=== PATIENT | female | born 1985 | race Caucasian/White ===

== ENCOUNTER 2017-12-22 14:14 | Emergency (ER) | payer OTHER ==
--- OUTSIDE RECORDS SUMMARY | 2017-12-22 14:17 | XMS REPORT | Clinical Summary ---
:1985 Author Organization [facility] Address [address] [place] [id number] Care Team Providers Name Role Phone Asked, No Pcp Primary Care Provider Unavailable Allergies No Known Allergies Current Medications Prescription Sig. Disp. Refills Start Date End Date Status meloxicam (MOBIC) 15 Take 1 tablet 30 tablet 2 06/01/2016 06/01/2017 mg tablet (15 mg total) by mouth daily. Active Problems Problem Noted Date Weight gain 06/01/2016 Family History Medical History Relation Name Comments Arthritis Father No Known Problems Mother No Known Problems Other siblings Relation Name Status Comments Father Alive Mother Alive Other siblings Alive Social History Tobacco Use Types Packs/Day Years Used Date Never Smoker Smokeless Tobacco: Never Used Alcohol Use Drinks/Week oz/Week Comments Yes Sex Assigned at Date Recorded Not on file Last Filed Vital Signs Not on file Plan of Treatment Health Maintenance Due Date Last Done Comments CERVICAL CANCER SCREENING 2005 INFLUENZA VACCINE 11/23/2017 Results Not on fileafter 12/21/2016 Insurance Payer Benefit Plan / Group Subscriber ID Type Phone Address [employer] OPEN [employer]ESS/NETWORK xxxxxxxxxxx HMO
[2017-12-22 15:04] LABS: Urine Blood NEGATIVE (NEG); Urine Glucose NEGATIVE (NEG); Urine Protein NEGATIVE (NEG); Urine pH 5.5 (5.0-7.0)
[2017-12-22 15:17] LABS: Absolute Monocytes 0.6 K/uL (0.1-1.3); Absolute Neutrophil 2.6 K/uL (1.8-8.0); Basophils % 0.5 % (0-1.3); Eosinophils % 1.6 % (0-4.4); Hematocrit 39.7 % (36.0-45.0); Lymphocytes % 23.6 % (15.3-44.8); MCH 30.7 pg (27.0-35.0); MCV 90.9 fL (80-100); MPV 9.7 fL (7.6-11.3); Monocytes % 13.4 % (3.3-12.3); RBC Red Blood Cell Count 4.37 M/uL (3.86-4.86)
[2017-12-22] MEDS ORDERED: NA CHLORIDE 0.9% 1,000 ML ONE (15:20)
[2017-12-22 15:46] LABS: ALT/SGPT 21 U/L (12-78); AST/SGOT 20 U/L (15-37); Albumin 3.5 g/dL (3.4-5.0); Alkaline Phosphatase 37 U/L (45-117); Amylase Level 45 U/L (25-115); BUN Blood Urea Nitrogen 7 mg/dL (7-18); Bicarbonate 27 mmol/L (21-32); Bilirubin Direct < 0.1 mg/dL (0-0.2); Bilirubin Total 0.2 mg/dL (0.2-1.0); Glucose Level 120 mg/dL (74-106); Lipase 135 U/L (73-393); Potassium 3.8 mmol/L (3.5-5.1); Protein, Total 7.1 g/dL (6.4-8.2); Sodium Level 141 mmol/L (136-145)
--- NOTE | 2017-12-22 16:26 | EDPHYS ---
Physician Documentation [facility] Name: Yari Martinez Age: 32 yrs Sex: Female : 1985 Arrival Date: 12/22/2017 Time: 14:17 Bed 23 Private MD: None, None ED Physician Juice Uribe HPI: 12/22 15:51 This 32 yrs old Female presents to ER via Ambulatory with complaints of kb Diarrhea, Bloody Stools. 15:51 The patient presents to the emergency department with diarrhea. kb 15:51 Onset: The symptoms/episode began/occurred 4 day(s) ago. Possible causes: unknown. The kb symptoms are aggravated by nothing. The symptoms are alleviated by nothing. Associated signs and symptoms: Pertinent positives: diarrhea, GI bleeding, Pertinent negatives: abdominal pain, anorexia, belching, constipation, dysuria, fever, flatulence, hematuria, nausea, vaginal discharge, vomiting. Severity of symptoms: At their worst the symptoms were moderate in the emergency department the symptoms are unchanged. The patient has not experienced similar symptoms in the past. The patient has been recently seen by a physician: the ER physician, in [place], yesterday, with similar presenting complaints, lab tests were done, CT scan was done. Pt was seen at [place] yesterday, had blood work and CT done. Diarrhea has increased in frequency and she has had blood in it the last 3 times so she came to be reevaluated. Historical: - Allergies: 14:38 No Known Allergies; ss - Home Meds: 14:38 levothyroxine oral [Active]; ss - PMHx: 14:38 Hypothyroidism; ss - PSHx: 14:38 None; ss - Immunization history:: Adult Immunizations up to date. - Social history:: Smoking status: Patient/guardian denies using tobacco. - Ebola Screening: : Patient denies exposure to infectious person Patient denies travel to an Ebola-affected area in the 21 days before illness onset. ROS: 15:49 Constitutional: Negative for fever, chills, and weight loss, Cardiovascular: Negative kb for chest pain, palpitations, and edema, Respiratory: Negative for shortness of breath, cough, wheezing, and pleuritic chest pain, Back: Negative for injury and pain, : Negative for injury, bleeding, discharge, and swelling, MS/Extremity: Negative for injury and deformity, Skin: Negative for injury, rash, and discoloration, Neuro: Negative for headache, weakness, numbness, tingling, and seizure. 15:49 Abdomen/GI: Positive for abdominal pain, diarrhea, rectal bleeding, Negative for nausea and vomiting, constipation, abdominal distension, anorexia. Exam: 15:49 Constitutional: This is a well developed, well nourished patient who is awake, alert, kb and in no acute distress. Head/Face: Normocephalic, atraumatic. Chest/axilla: Normal chest wall appearance and motion. Nontender with no deformity. No lesions are appreciated. Cardiovascular: Regular rate and rhythm with a normal S1 and S2. No gallops, murmurs, or rubs. Normal PMI, no JVD. No pulse deficits. Respiratory: Lungs have equal breath sounds bilaterally, clear to auscultation and percussion. No rales, rhonchi or wheezes noted. No increased work of breathing, no retractions or nasal flaring. Abdomen/GI: Soft, non-tender, with normal bowel sounds. No distension or tympany. No guarding or rebound. No evidence of tenderness throughout. Back: No spinal tenderness. No costovertebral tenderness. Full range of motion. Skin: Warm, dry with normal turgor. Normal color with no rashes, no lesions, and no evidence of cellulitis. MS/ Extremity: Pulses equal, no cyanosis. Neurovascular intact. Full, normal range of motion. Neuro: Awake and alert, GCS 15, oriented to person, place, time, and situation. Cranial nerves II-XII grossly intact. Motor strength 5/5 in all extremities. Sensory grossly intact. Cerebellar exam normal. Normal gait. 16:24 Abdomen/GI: Rectal exam: rectal tone normal, Stool: brown, guaiac positive, the kb spouse/significant other acts as a gift shop clerk. Vital Signs: 14:34 BP 132 / 85; Pulse 69; Resp 16; Temp 98.5(TE); Pulse Ox 100% on R/A; Weight 81.65 kg; ss Height 5 ft. 4 in. (162.56 cm); Pain 5/10; 16:26 BP 100 / 59; Pulse 60; Resp 16; Pulse Ox 100% on R/A; kr2 14:34 Body Mass Index 30.90 (81.65 kg, 162.56 cm) ss MDM: 14:40 Patient medically screened. kb 15:49 Data reviewed: vital signs, nurses notes. Data interpreted: Pulse oximetry: on room air kb is 100 %. Interpretation: normal. 16:24 Counseling: I had a detailed discussion with the patient and/or guardian regarding: the kb historical points, exam findings, and any diagnostic results supporting the discharge/admit diagnosis, lab results, the need for outpatient follow up, a family practitioner, a medical staffing coordinator, to return to the emergency department if symptoms worsen or persist or if there are any questions or concerns that arise at home. ED course: labs and ct report from [place] reviewed. Gallstones and colitis found on CT. . 12/22 14:48 Order name: Amylase, Serum; Complete Time: 15:47 kb 12/22 14:48 Order name: Basic Metabolic Panel; Complete Time: 15:47 kb 12/22 14:48 Order name: CBC with Diff; Complete Time: 15:31 kb 12/22 14:48 Order name: Hepatic Function; Complete Time: 15:47 kb 12/22 14:48 Order name: Lipase; Complete Time: 15:47 kb 12/22 14:50 Order name: Stool Culture 12/22 14:50 Order name: CDIFF kb 12/22 14:59 Order name: Urine Dipstick--Ancillary (enter results); Complete Time: 15:05 eb 12/22 14:59 Order name: Urine --Ancillary (enter results); Complete Time: 15:05 eb 12/22 16:49 Order name: Guiac 12/22 14:48 Order name: Urine Test (obtain specimen); Complete Time: 14:50 kb 12/22 14:48 Order name: IV Saline Lock; Complete Time: 14:57 kb 12/22 14:48 Order name: Labs collected and sent; Complete Time: 14:58 kb 12/22 14:48 Order name: Urine Dipstick-Ancillary (obtain specimen); Complete Time: 14:50 kb Administered Medications: 15:16 Drug: NS 0.9% 1000 ml Route: IV; Rate: 1000 ml; Site: right antecubital; ss 16:28 Follow up: Response: No adverse reaction; IV Status: Completed infusion kr2 16:51 Drug: Flagyl 500 mg Route: PO; kr2 16:53 Follow up: Response: Medication administered at discharge. kr2 Disposition: 17:09 Co-signature as Attending Physician, Juice Uribe MD. rn Disposition: 12/22/17 16:25 Discharged to Home. Impression: Diarrhea, unspecified. - Condition is Stable. - Discharge Instructions: Food Choices to Help Relieve Diarrhea, Adult, Diarrhea, Adult, [id number]. - Prescriptions for Flagyl 500 mg Oral Tablet - take 1 tablet by ORAL route every 8 hours for 10 days; 30 tablet. - Medication Reconciliation Form, Thank You Letter, Antibiotic Education, Prescription Opioid Use form. - Follow up: Emergency Department; When: As needed; Reason: Worsening of condition. Follow up: Private Physician; When: 2 - 3 days; Reason: Recheck today's complaints, Continuance of care, Re-evaluation by your physician. Signatures: Dispatcher [employer] EDPA Andra Romo, PYROTECHNIST-C PYROTECHNIST-Ckb Juice Uribe MD MD rn Smirch, Shelby, RN RN ss Ana Sparrow RN RN kr2 Corrections: (The following items were deleted from the chart) 15:55 15:49 Abdomen/GI: Positive for abdominal pain, diarrhea, Negative for nausea and kb vomiting, constipation, abdominal distension, anorexia, kb 16:53 16:25 12/22/2017 16:25 Discharged to Home. Impression: Diarrhea, unspecified. Condition kr2 is Stable. Forms are Medication Reconciliation Form, Thank You Letter, Antibiotic Education, Prescription Opioid Use. Follow up: Emergency Department; When: As needed; Reason: Worsening of condition. Follow up: Private Physician; When: 2 - 3 days; Reason: Recheck today's complaints, Continuance of care, Re-evaluation by your physician. kb
--- NOTE | 2017-12-22 16:26 | ER ---
Nurse's Notes [facility] Name: Yari Martinez Age: 32 yrs Sex: Female : 1985 Arrival Date: 12/22/2017 Time: 14:17 Bed 23 Private MD: None, None Diagnosis: Diarrhea, unspecified Presentation: 12/22 14:34 Presenting complaint: Patient states: abd cramping and diarrhea x 3 days. Was seen at [facility] ER yesterday and had blood work and CT scan and was sent home with new prescriptions and to follow up with PCP. Transition of care: patient was not received from another setting of care. Onset of symptoms was December 18, 2017. Risk Assessment: Do you want to hurt yourself or someone else? Patient reports no desire to harm self or others. Initial Sepsis Screen: Does the patient meet any 2 criteria? No. Patient's initial sepsis screen is negative. Does the patient have a suspected source of infection? No. Patient's initial sepsis screen is negative. Care prior to arrival: None. 14:34 Method Of Arrival: Ambulatory 14:34 Acuity: FELIPE 3 Historical: - Allergies: 14:38 No Known Allergies; - Home Meds: 14:38 levothyroxine oral [Active]; - PMHx: 14:38 Hypothyroidism; - PSHx: 14:38 None; - Immunization history:: Adult Immunizations up to date. - Social history:: Smoking status: Patient/guardian denies using tobacco. - Ebola Screening: : Patient denies exposure to infectious person Patient denies travel to an Ebola-affected area in the 21 days before illness onset. Screenin:45 Abuse screen: Denies threats or abuse. Denies injuries from another. Nutritional kr2 screening: No deficits noted. Tuberculosis screening: No symptoms or risk factors identified. Fall Risk None identified. Assessment: 14:45 General: Appears in no apparent distress. uncomfortable, well groomed, well developed, kr2 well nourished, Behavior is calm, cooperative, appropriate for age. Pain: Complains of pain in abdomen Pain currently is 5 out of 10 on a pain scale. Quality of pain is described as aching, Is continuous, Alleviated by rest. Neuro: Level of Consciousness is awake, alert, obeys commands, Oriented to person, place, time, situation, Appropriate for age. Cardiovascular: Capillary refill < 3 seconds in bilateral fingers Patient's skin is warm and dry. Respiratory: Airway is patent Respiratory effort is even, unlabored, Respiratory pattern is regular, symmetrical. GI: Abdomen is flat, non-distended, Bowel sounds present X 4 quads. Abd is soft and non tender X 4 quads. : Urine is clear. Derm: Skin is intact, is healthy with good turgor, Skin is pink, warm \T\ dry. Musculoskeletal: Circulation, motion, and sensation intact. 16:00 Reassessment: Patient appears in no apparent distress at this time. Patient and/or kr2 family updated on plan of care and expected duration. Pain level reassessed. Patient is alert, oriented x 3, equal unlabored respirations, skin warm/dry/pink. Patient attempted to provide stool sample, reports she is unable to have a bowel movement at this time. Vital Signs: 14:34 BP 132 / 85; Pulse 69; Resp 16; Temp 98.5(TE); Pulse Ox 100% on R/A; Weight 81.65 kg; ss Height 5 ft. 4 in. (162.56 cm); Pain 5/10; 16:26 BP 100 / 59; Pulse 60; Resp 16; Pulse Ox 100% on R/A; kr2 14:34 Body Mass Index 30.90 (81.65 kg, 162.56 cm) ED Course: 14:17 Patient arrived in ED. sb2 14:18 None, None is Private Physician. sb2 14:34 Arm band placed on left wrist. ss 14:37 Triage completed. ss 14:40 And[facility] F[facility]-C [facility]. kb 14:40 Juice Uribe MD is Attending Physician. kb 14:43 Ana Sparrow, FAITH is Primary Nurse. kr2 14:45 Patient has correct armband on for positive identification. Bed in low position. Call kr2 light in reach. Side rails up X 1. Pulse ox on. NIBP on. Door closed. Warm blanket given. Head of bed elevated. 14:55 Inserted saline lock: 20 gauge in right antecubital area, using aseptic technique. kr2 Blood collected. 16:51 No provider procedures requiring assistance completed. IV discontinued, intact, kr2 bleeding controlled, No redness/swelling at site. Pressure dressing applied. Administered Medications: 15:16 Drug: NS 0.9% 1000 ml Route: IV; Rate: 1000 ml; Site: right antecubital; 16:28 Follow up: Response: No adverse reaction; IV Status: Completed infusion kr2 16:51 Drug: Flagyl 500 mg Route: PO; kr2 16:53 Follow up: Response: Medication administered at discharge. kr2 Outcome: 16:25 Discharge ordered by . micheal 16:51 Discharged to home ambulatory, with family. kr2 16:51 Condition: good 16:51 Discharge instructions given to patient, family, Instructed on discharge instructions, follow up and referral plans. medication usage, Demonstrated understanding of instructions, follow-up care, medications, Prescriptions given X 1. 16:53 Patient left the ED. kr2 Addendum: 12/31/2017 11:57 Addendum: Culture Results: Positive stool culture. Phone call Attempt #1 pt i w asymptomatic, followed up with PCP. Signatures: Andra Romo, TRIM CARPENTER-C TRIM CARPENTER-Ckb Inge Nolasco RN FAITH Judith Flores RN RN ss Reaves, Karey, RN RN kr2 Afshan Gonzalez2
[2017-12-22] MEDS ORDERED: metroNIDAZOLE 500 MG TABLET ONE (16:37)
[2017-12-22 17:02] VITALS: TEMP 98.5; O2SAT 100
[2017-12-22 17:03] VITALS: BP 100/59
== END 2017-12-22 16:53 | disposition home or self-care (01) ==
LOC: ER 14:14
DX: R19.7 Diarrhea, unspecified (principal); E03.9 Hypothyroidism, unspecified
CPT/HCPCS: 36415; 80048; 80076; 81003; 81025; 82150; 82272; 83690; 85025; 87045; 87046; 87077; 87186; 87493; 96360; 99284; J7030

== ENCOUNTER 2019-01-09 23:19 | Emergency (ER) | payer BC ==
--- OUTSIDE RECORDS SUMMARY | 2019-01-09 23:22 | XMS REPORT ---
:1985 Author Organization [employer] Care Team Providers Name Role Phone Jonathan Nina Provider Role Unavailable Allergies, Adverse Reactions, Alerts Substance Reaction Event Type N.K.D.A. Info Not Available Non Drug Allergy Problems Problem Type Condition Code Onset Dates Condition Status Assessment Acquired hypothyroidism E03.9 Active Problem Acquired hypothyroidism E03.9 Active Assessment Salmonella dysentery A02.0 Active Medications Medication Code Code Instructions Start End Status Dosage System Date Date Levothyroxine [facility] 90810984968 50 MCG Orally Active 1 tablet Sodium Once a day on an empty stomach in the morning Flagyl [facility] [address]-72 Active not defined Phentermine HCl [facility] 09893158513 37.5 MG Orally Active 1 tablet Once a day Results No Known Results Summary Purpose eClinicalWorks Submission
--- OUTSIDE RECORDS SUMMARY | 2019-01-09 23:22 | XMS REPORT ---
:1985 Author Organization [employer] Care Team Providers Name Role Phone Jonathan Nina Provider Role Unavailable Allergies No Known Allergies Problems Problem Type Condition Code Onset Dates Condition Status Problem Other chronic pain G89.29 Active Problem Acquired hypothyroidism E03.9 Active Problem Seasonal allergic rhinitis, J30.2 Active unspecified trigger Medications No Known Medications Results No Known Results Summary Purpose eClinicalWorks Submission
--- OUTSIDE RECORDS SUMMARY | 2019-01-09 23:22 | XMS REPORT ---
[...] Seasonal allergic rhinitis, J30.2 Active unspecified trigger Assessment Other chronic pain G89.29 Active Assessment Pain in left wrist M25.532 Active Assessment Acquired hypothyroidism E03.9 Active Medications Medication Code Code Instructions Start End Status Dosage System Date Date Medrol [facility] 96008889833 4 MG Orally as Active as directed directed Fluticasone [facility] 72247000827 50 MCG/ACT Feb 20, Active 1 spray in Propionate Nasally Once a 2018 each day nostril Phentermine HCl [facility] 93058974568 37.5 MG Orally Active 1 tablet Once a day Levothyroxine [facility] 62759954274 50 MCG Orally Active 1 tablet Sodium Once a day on an empty stomach in the morning Flagyl [facility] [address]-56 Active not defined Deconex DMX [facility] 20322991723 10-17.5-385 MG Mar 23, Active one tab Orally Four 2018 times a day Results No Known Results Summary Purpose eClinicalWorks Submission
--- OUTSIDE RECORDS SUMMARY | 2019-01-09 23:22 | XMS REPORT | Clinical Summary ---
:1985 Author Organization [facility] Address [address] [place] [address] Care Team Providers Name Role Phone Kory Garcia MD Primary Care Provider Allergies No Known Allergies Medications Medication Sig Dispensed Refills Start Date End Date Status levothyroxine (SYNTHROID, LEVOXYL) 0 07/01/2018 Active 50 mcg tablet meloxicam (MOBIC) 7.5 mg tablet 0 07/11/2018 Active Active Problems Problem Noted Date Weight gain 06/01/2016 Encounters Date Type Specialty Care Team Description 08/23/2018 Office Visit Orthopedic Surgery Kirill Gale DRUJ ( distal radioulnar MD joint) sprain, left, initial encounter (Primary Dx) after 01/08/2018 Family History Medical History Relation Name Comments Arthritis Father No Known Problems Mother No Known Problems Other siblings Relation Name Status Comments Father Alive Mother Alive Other siblings Alive Social History Tobacco Use Types Packs/Day Years Used Date Never Smoker Smokeless Tobacco: Never Used Alcohol Use Drinks/Week oz/Week Comments Yes 5 Standard drinks or equivalent Sex Assigned at Date Recorded Not on file Job Start Date Occupation Industry Not on file Not on file Not on file Travel History Travel Start Travel End No recent travel history available. Last Filed Vital Signs Vital Sign Reading Time Taken Comments Blood Pressure - - Pulse - - Temperature - - Respiratory Rate - - Oxygen Saturation - - Inhaled Oxygen Concentration - - Weight 90.7 kg (200 lb) 08/23/2018 9:45 AM CDT Height 165.1 cm (5' 5") 08/23/2018 9:45 AM CDT Body Mass Index 33.28 08/23/2018 9:45 AM CDT Plan of Treatment Health Maintenance Due Date Last Done Comments CERVICAL CANCER SCREENING 2005 INFLUENZA VACCINE 11/23/2018 Procedures Procedure Name Priority Date/Time Associated Comments Diagnosis XR HAND 3+ VW LEFT Routine 08/23/2018 9:50 Left wrist pain Results for this AM CDT procedure are in the results section. GA ARTHROCENTESIS Routine 08/23/2018 9:20 DRUJ (distal Results for this ASPIR&/INJ INTERM AM CDT radioulnar joint) procedure are in JT/BURS W/O US sprain, left, the results initial encounter section. after 01/08/2018 Results XR Hand 3+ Vw Left (08/23/2018 9:50 AM CDT) Specimen Narrative Performed At X-rays 3 views the left hand show no acute bony injury. [facility] Performing Organization Address [facility] Phone Number [facility] [address] [place] [address] Medium Joint Arthrocentesis: wrist, L radiocarpal (08/23/2018 9:20 AM CDT) Narrative Performed At Kirill Gale MD 08/23/2018 12:14 PM Medium Joint Arthrocentesis: wrist, L radiocarpal Consent given by: patient Site marked: site marked Timeout: Immediately prior to procedure a time out was called to verify the correct patient, procedure, equipment, family support worker and site/side marked as required Supporting Documentation Indications: pain Procedure Details Preparation: Patient was prepped and draped in the usual sterile fashion Ultrasound guided: no Location: wrist - L radiocarpal (Left DRUJ) Left side: Needle size: 25 G Approach (left): dorsal. 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
[2019-01-09 23:44] LABS: Urine Blood NEGATIVE (NEG); Urine Glucose NEGATIVE (NEG); Urine Protein NEGATIVE (NEG)
[2019-01-09] MEDS ORDERED: NA CHLORIDE 0.9% 1,000 ML ONE (23:44)
[2019-01-09] MEDS ORDERED: ONDANSETRON 4 MG/2 ML VIAL ONE (23:44)
[2019-01-09] MEDS ORDERED: KETOROLAC 30 MG/ML INJ ONE (23:44)
[2019-01-10 00:09] LABS: Absolute Lymphocytes (CBC) 2.8 K/uL (0.7-4.9); Basophils % 0.9 % (0-1.3); Hematocrit 36.9 % (36.0-45.0); Lymphocytes % 41.1 % (15.3-44.8); MPV 9.9 fL (7.6-11.3); RBC Red Blood Cell Count 4.08 M/uL (3.86-4.86)
[2019-01-10 00:26] LABS: ALT/SGPT 17 U/L (12-78); AST/SGOT 11 U/L (15-37); Albumin 4.2 g/dL (3.4-5.0); Alkaline Phosphatase 44 U/L (45-117); BUN Blood Urea Nitrogen 15 mg/dL (7-18); Bicarbonate 27 mmol/L (21-32); Bilirubin Direct < 0.1 mg/dL (0-0.2); Bilirubin Total 0.2 mg/dL (0.2-1.0); Glucose Level 102 mg/dL (74-106); Lipase 185 U/L (73-393); Potassium 3.5 mmol/L (3.5-5.1); Protein, Total 7.5 g/dL (6.4-8.2); Sodium Level 140 mmol/L (136-145); Troponin (Emerg Dept Use Only) < 0.02 ng/mL (0.0-0.045)
--- NOTE | 2019-01-10 02:03 | ER ---
Nurse's Notes [facility] Name: Yari Martinez Age: 33 yrs Sex: Female : 1985 Arrival Date: 01/09/2019 Time: 23:23 Bed 6 Private MD: Diagnosis: Cholelithiasis Presentation: 01/09 23:31 Presenting complaint: Patient states: right rib pressure, epigastric pain X3 day with ak1 nausea. pt has had intermittent pain since November and started omeprazole from Dr. Grant. Transition of care: patient was not received from another setting of care. Onset of symptoms is unknown. Risk Assessment: Do you want to hurt yourself or someone else? Patient reports no desire to harm self or others. Initial Sepsis Screen: Does the patient meet any 2 criteria? No. Patient's initial sepsis screen is negative. Does the patient have a suspected source of infection? No. Patient's initial sepsis screen is negative. Care prior to arrival: None. 23:31 Method Of Arrival: Ambulatory ak1 23:31 Acuity: FELIPE 3 ak1 Triage Assessment: 23:33 General: Appears in no apparent distress. Behavior is calm, cooperative. Pain: ak1 Complains of pain in diaphragm, xyphoid area and epigastric area. EENT: No signs and/or symptoms were reported regarding the EENT system. 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 Gait is steady, Speech is normal, Facial symmetry appears normal. Cardiovascular: Reports since chest discomfort with right rib pain Heart tones S1 S2 present. Respiratory: Airway is patent Respiratory effort is even, unlabored, Respiratory pattern is regular, Breath sounds are clear bilaterally. GI: Abdomen is round non-distended, Bowel sounds present X 4 quads. Reports epigastric pain, nausea. : No signs and/or symptoms were reported regarding the genitourinary system. Derm: No signs and/or symptoms reported regarding the dermatologic system. Musculoskeletal: No signs and/or symptoms reported regarding the musculoskeletal system. [employer]: 23:30 LMP 01/03/2019 ak1 Historical: - Allergies: 23:33 No Known Allergies; ak1 - Home Meds: 23:33 levothyroxine oral [Active]; omeprazole Oral [Active]; ak1 - PMHx: 23:33 Hypothyroidism; ak1 - PSHx: 23:33 breast augmentation; ak1 - Immunization history:: Adult Immunizations unknown. - Social history:: Smoking status: Patient/guardian denies using tobacco. - Ebola Screening: : No symptoms or risks identified at this time. Screenin:35 Abuse screen: Denies threats or abuse. Denies injuries from another. Nutritional ak1 screening: No deficits noted. Tuberculosis screening: No symptoms or risk factors identified. Fall Risk None identified. Assessment: 23:36 GI: Abd is soft X 4 quads. ak1 23:56 Reassessment: Patient appears in no apparent distress at this time. No changes from ak1 previously documented assessment. Patient and/or family updated on plan of care and expected duration. Pain level reassessed. Patient is alert, oriented x 3, equal unlabored respirations, skin warm/dry/pink. see triage assessment. 01/10 00:46 Reassessment: Patient appears in no apparent distress at this time. No changes from ak1 previously documented assessment. Patient and/or family updated on plan of care and expected duration. Pain level reassessed. Patient is alert, oriented x 3, equal unlabored respirations, skin warm/dry/pink. 02:08 Reassessment: Patient appears in no apparent distress at this time. No changes from ak1 previously documented assessment. Patient and/or family updated on plan of care and expected duration. Pain level reassessed. Patient is alert, oriented x 3, equal unlabored respirations, skin warm/dry/pink. Patient states feeling better. Vital Signs: 01/09 23:30 BP 121 / 87; Pulse 60; Resp 18; Temp 97.8(TE); Pulse Ox 100% on R/A; Weight 86.18 kg ak1 (R); Height 5 ft. 4 in. (162.56 cm) (R); Pain 6/10; 01/10 00:46 BP 139 / 83; Pulse 66; Resp 18; Pulse Ox 100% on R/A; Pain 4/10; ak1 01:26 BP 116 / 71; Pulse 48; Resp 16; Pulse Ox 98% on R/A; ak1 02:08 BP 104 / 73; Pulse 54; Resp 16; Temp 97.4(TE); Pulse Ox 100% on R/A; ak1 01/09 23:30 Body Mass Index 32.61 (86.18 kg, 162.56 cm) ak1 ED Course: 01/09 23:23 Patient arrived in ED. cf2 23:24 Andra Romo FNP-C is [facility]. kb 23:24 Bakari Cunha MD is Attending Physician. kb 23:30 Janeen Rivera, RN is Primary Nurse. ak1 23:30 Arm band placed on Patient placed in an exam room, on a stretcher, on pulse oximetry, ak1 Patient notified of wait time. Urine obtained. 23:32 Triage completed. ak1 23:35 Patient has correct armband on for positive identification. Bed in low position. Call ak1 light in reach. Side rails up X 1. Pulse ox on. NIBP on. 23:45 Inserted saline lock: 22 gauge in right antecubital area, using aseptic technique. lp1 Blood collected. 01/10 00:00 Radiology exam delayed due to lab results not completed at this time. (BUN/Creatinine). kw1 00:16 Radiology exam delayed due to lab results not completed at this time. (BUN/Creatinine). kw1 01:01 CT Abd/Pelvis - IV Contrast Only In Process Unspecified. EDMS 02:08 No provider procedures requiring assistance completed. IV discontinued, intact, ak1 bleeding controlled, No redness/swelling at site. Pressure dressing applied. Administered Medications: 01/09 23:52 Drug: NS 0.9% 1000 ml Route: IV; Rate: 1000 ml; Site: right antecubital; lp1 01/10 02:02 Follow up: IV Status: Completed infusion; IV Intake: 1000ml ak1 01/09 23:54 Drug: Zofran 4 mg Route: IVP; Site: right antecubital; ak1 01/10 00:59 Follow up: Response: No adverse reaction ak1 01/09 23:54 Drug: TORadol - Ketorolac 15 mg Route: IVP; Site: right antecubital; ak1 01/10 00:58 Follow up: Response: No adverse reaction; Pain is decreased ak1 Intake: 02:02 IV: 1000ml; Total: 1000ml. ak1 Outcome: 02:02 Discharge ordered by . kb 02:08 Condition: improved ak1 02:09 Discharged to home ambulatory. ak1 02:09 Discharge instructions given to patient, Instructed on discharge instructions, follow up and referral plans. no drinking with medication, no driving heavy equipment, medication usage, Demonstrated understanding of instructions, follow-up care, medications, Prescriptions given X 3. 02:15 Patient left the ED. ak1 Signatures: Dispatcher [employer] EDNJ Andra Romo, SANAZ-C SANAZ-Grace Bob RN RN lp1 Janeen Rivera RN RN ak1 Ludmila Kennedy1 Reji Decker 2
--- NOTE | 2019-01-10 02:04 | EDPHYS ---
Physician Documentation [facility] Name: Yari Martinez Age: 33 yrs Sex: Female : 1985 Arrival Date: 01/09/2019 Time: 23:23 Bed 6 Private MD: ED Physician Bakari Cunha HPI: 01/09 23:40 This 33 yrs old Female presents to ER via Ambulatory with complaints of kb Abdominal Pain, Chest Pain. 23:40 The patient presents with abdominal pain in the right upper quadrant. Onset: The kb symptoms/episode began/occurred 1 year(s) ago, and became worse 3 day(s) ago. The symptoms radiate to chest. Associated signs and symptoms: Pertinent positives: nausea. The symptoms are described as constant. Modifying factors: The symptoms are alleviated by nothing, the symptoms are aggravated by "eating bad". Severity of pain: At its worst the pain was moderate in the emergency department the pain is unchanged. The patient has not experienced similar symptoms in the past. The patient has not recently seen a physician. Pt reports RUQ pain that started a year ago, but has been persistent for the last 3 days. Reports the pain normally flares up after eating bad, but she has been eating healthy lately so she doesn't know what triggered it this time. . COUNTER HELP: 23:30 LMP 01/03/2019 ak1 Historical: - Allergies: 23:33 No Known Allergies; ak1 - Home Meds: 23:33 levothyroxine oral [Active]; omeprazole Oral [Active]; ak1 - PMHx: 23:33 Hypothyroidism; ak1 - PSHx: 23:33 breast augmentation; ak1 - Immunization history:: Adult Immunizations unknown. - Social history:: Smoking status: Patient/guardian denies using tobacco. - Ebola Screening: : No symptoms or risks identified at this time. ROS: 23:40 Constitutional: Negative for fever, chills, and weight loss, Neck: Negative for injury, kb pain, and swelling, Respiratory: Negative for shortness of breath, cough, wheezing, and pleuritic chest pain, Back: Negative for injury and pain, : Negative for injury, bleeding, discharge, and swelling, MS/Extremity: Negative for injury and deformity, Skin: Negative for injury, rash, and discoloration, Neuro: Negative for headache, weakness, numbness, tingling, and seizure. 23:40 Cardiovascular: Positive for chest pain, Negative for edema, orthopnea, palpitations, paroxysmal nocturnal dyspnea. 23:40 Abdomen/GI: Positive for abdominal pain, nausea. Exam: 23:40 Constitutional: This is a well developed, well nourished patient who is awake, alert, kb and in no acute distress. Head/Face: Normocephalic, atraumatic. ENT: Nares patent. No nasal discharge, no septal abnormalities noted. Tympanic membranes are normal and external auditory canals are clear. Oropharynx with no redness, swelling, or masses, exudates, or evidence of obstruction, uvula midline. Mucous membranes moist. Neck: Trachea midline, no thyromegaly or masses palpated, and no cervical lymphadenopathy. Supple, full range of motion without nuchal rigidity, or vertebral point tenderness. No Meningismus. Chest/axilla: Normal chest wall appearance and motion. Nontender with no deformity. No lesions are appreciated. Cardiovascular: Regular rate and rhythm with a normal S1 and S2. No gallops, murmurs, or rubs. Normal PMI, no JVD. No pulse deficits. Respiratory: Lungs have equal breath sounds bilaterally, clear to auscultation and percussion. No rales, rhonchi or wheezes noted. No increased work of breathing, no retractions or nasal flaring. Back: No spinal tenderness. No costovertebral tenderness. Full range of motion. Skin: Warm, dry with normal turgor. Normal color with no rashes, no lesions, and no evidence of cellulitis. MS/ Extremity: Pulses equal, no cyanosis. Neurovascular intact. Full, normal range of motion. Neuro: Awake and alert, GCS 15, oriented to person, place, time, and situation. Cranial nerves II-XII grossly intact. Motor strength 5/5 in all extremities. Sensory grossly intact. Cerebellar exam normal. Normal gait. 23:40 Abdomen/GI: Inspection: abdomen appears normal, Bowel sounds: normal, in all quadrants, Palpation: soft, in all quadrants, moderate abdominal tenderness, in the right upper quadrant. Vital Signs: 23:30 BP 121 / 87; Pulse 60; Resp 18; Temp 97.8(TE); Pulse Ox 100% on R/A; Weight 86.18 kg ak1 (R); Height 5 ft. 4 in. (162.56 cm) (R); Pain 6/10; 01/10 00:46 BP 139 / 83; Pulse 66; Resp 18; Pulse Ox 100% on R/A; Pain 4/10; ak1 01:26 BP 116 / 71; Pulse 48; Resp 16; Pulse Ox 98% on R/A; ak1 02:08 BP 104 / 73; Pulse 54; Resp 16; Temp 97.4(TE); Pulse Ox 100% on R/A; ak1 01/09 23:30 Body Mass Index 32.61 (86.18 kg, 162.56 cm) ak1 MDM: 01/09 23:28 Patient medically screened. kb 23:42 Data reviewed: vital signs, nurses notes. Data interpreted: Pulse oximetry: on room air kb is 100 %. Interpretation: normal. 01/10 02:02 Counseling: I had a detailed discussion with the patient and/or guardian regarding: the kb historical points, exam findings, and any diagnostic results supporting the discharge/admit diagnosis, lab results, radiology results, the need for outpatient follow up, a general surgeon, a shot fireman, to return to the emergency department if symptoms worsen or persist or if there are any questions or concerns that arise at home. 01/09 23:39 Order name: Basic Metabolic Panel; Complete Time: 00:30 kb 01/09 23:39 Order name: CBC with Diff; Complete Time: 00:11 kb 01/09 23:39 Order name: Hepatic Function; Complete Time: 00:30 kb 01/09 23:39 Order name: Lipase; Complete Time: 00:30 kb 01/09 23:39 Order name: Troponin (emerg Dept Use Only); Complete Time: 00:30 kb 01/09 23:40 Order name: Urine Dipstick--Ancillary (enter results); Complete Time: 23:49 cm6 01/09 23:39 Order name: IV Saline Lock; Complete Time: 23:52 kb 01/09 23:39 Order name: Labs collected and sent; Complete Time: 23:52 kb 01/09 23:39 Order name: EKG; Complete Time: 23:41 kb 01/09 23:39 Order name: CT Abd/Pelvis - IV Contrast Only kb 01/09 23:40 Order name: Urine --Ancillary (enter results); Complete Time: 23:49 cm6 01/09 23:39 Order name: EKG - Nurse/Tech; Complete Time: 23:52 kb Administered Medications: 01/09 23:52 Drug: NS 0.9% 1000 ml Route: IV; Rate: 1000 ml; Site: right antecubital; lp1 01/10 02:02 Follow up: IV Status: Completed infusion; IV Intake: 1000ml ak1 01/09 23:54 Drug: Zofran 4 mg Route: IVP; Site: right antecubital; ak1 01/10 00:59 Follow up: Response: No adverse reaction ak1 01/09 23:54 Drug: TORadol - Ketorolac 15 mg Route: IVP; Site: right antecubital; ak1 01/10 00:58 Follow up: Response: No adverse reaction; Pain is decreased ak1 Disposition: 06:04 Co-signature as Attending Physician, Bakari Cunha MD. Disposition: 01/10/19 02:02 Discharged to Home. Impression: Cholelithiasis. - Condition is Stable. - Discharge Instructions: Cholelithiasis, Fygo-cf-Ovdu. - Prescriptions for Bentyl 20 mg Oral Tablet - take 1 tablet by ORAL route every 6 hours As needed; 20 tablet. Zofran 4 mg Oral Tablet - take 1 tablet by ORAL route every 6 hours As needed; 20 tablet. Diclofenac Sodium 75 mg Oral Tablet, Delayed Release (E.C.) - take 1 tablet by ORAL route 2 times per day As needed; 30 tablet. - Medication Reconciliation Form, Thank You Letter, Antibiotic Education, Prescription Opioid Use form. - Follow up: Emergency Department; When: As needed; Reason: Worsening of condition. Follow up: Private Physician; When: 2 - 3 days; Reason: Recheck today's complaints, Continuance of care, Re-evaluation by your physician. Signatures: Dispatcher [employer] Andra Boland, MIRANDA YO-Grace Bob RN RN lp1 Janeen Rivera RN RN ak1 Bakari Cunha MD MD Corrections: (The following items were deleted from the chart) 02:15 02:02 01/10/2019 02:02 Discharged to Home. Impression: Cholelithiasis. Condition is ak1 Stable. Forms are Medication Reconciliation Form, Thank You Letter, Antibiotic Education, Prescription Opioid Use. Follow up: Emergency Department; When: As needed; Reason: Worsening of condition. Follow up: Private Physician; When: 2 - 3 days; Reason: Recheck today's complaints, Continuance of care, Re-evaluation by your physician. kb
[2019-01-10 02:28] VITALS: BP 104/73; TEMP 97.4; O2SAT 100
--- NOTE | 2019-01-10 07:26 | EKG ---
Test Date: 2019-01-09 Test Time: 23:45:42 Assistant Project Engineer: ELLEN MEASUREMENT RESULTS: Intervals: Rate: 54 OK: 194 QRSD: 86 QT: 450 QTc: 426 Aldrich: P: 39 OK: 194 QRS: 63 T: 59 INTERPRETIVE STATEMENTS: Sinus bradycardia with sinus arrhythmia Otherwise normal ECG No previous ECG available for comparison Electronically Signed On 01-10-19 07:25:06 CDT by Jori Concepcion
--- NOTE | 2019-01-10 09:55 | RAD REPORT ---
EXAM DESCRIPTION: CT - Abdomen Pelvis W Contrast - 01/10/2019 12:56 am CLINICAL HISTORY: 33 years Female right rib/epigastric pain, nausea. TECHNIQUE: Contiguous axial images obtained through the abdomen and pelvis following intravenous con trast administration. Coronal and sagittal reformatted images provided. This CT exam was performed according to our departmental dose-optimization program, which includes on e or more of the following dose reduction techniques: automated exposure control, adjustment of the m A and/or kV according to patient size, and/or use of iterative reconstruction technique. COMPARISON: No prior exams provided for comparison. FINDINGS: There is a small gallstone. No abnormal gallbladder distention or definite pericholecystic inflammation. No biliary dilatation. The lung bases, liver, pancreas, spleen, adrenal glands, kidneys, adnexa, urinary bladder, and osseou s structures are normal. Intrauterine device in place. Mild colonic constipation without bowel inflammation, obstruction, free intraperitoneal air, or ascit es. The appendix is normal. IMPRESSION: Cholelithiasis without definite cholecystitis. Mild colonic constipation. No bowel inflammation or obstruction. Electronically signed by: Myrna Love MD 01/10/2019 1:51 AM CDT Due to temporary technical issues with the PACS/Fluency reporting system, reports are being signed by the in house radiologist as a courtesy to ensure prompt reporting. The interpreting radiologist is f erniely responsible for the content of the report.
== END 2019-01-10 02:15 | disposition home or self-care (01) ==
LOC: ER 23:19
DX: K80.20 Calculus of gallbladder without cholecystitis without obstruction (principal); E03.9 Hypothyroidism, unspecified; Z98.82 Breast implant status
CPT/HCPCS: 93005; 85025; 80048; 36415; 81025; 80076; 81003; 84484; 83690; 74177; Q9967; J7030; J2405; 96361; 96374; 96375; 99284

== ENCOUNTER 2022-01-05 06:27 | Day surgery (SDC) | payer BC ==
[2022-01-04 12:41] LABS: Absolute Lymphocytes (CBC) 2.5 K/uL (0.7-4.9); Hematocrit 38.9 % (36.0-45.0); Lymphocytes % 32.9 % (15.3-44.8); MCV 92.7 fL (80-100)
[2022-01-04 12:58] LABS: Urine Bilirubin NEGATIVE (Negative); Urine Blood Negative (Negative); Urine Clarity Clear (Clear); Urine Color Colorless (Yellow); Urine Glucose NEGATIVE (Negative); Urine Protein NEGATIVE (Negative); Urine RBC <5 /HPF (None Seen); Urine Urobilinogen Normal (Normal)
[2022-01-04 13:45] LABS: SARS-CoV-2 Antigen Rapid Res Negative (Negative)
[2022-01-05] MEDS ORDERED: SCOPOLAMINE HYDROBROMIDE PATCH TD ONE ×2 (06:57→07:00)
[2022-01-05] MEDS ORDERED: Ringers Lactate 1,000 ML IV ONE ×3 (06:57→12:03)
[2022-01-05] MEDS ORDERED: CEFAZOLIN 3 GM in NA CHLORIDE 0.9% 100 ML IVPB ONE (07:00)
[2022-01-05] MEDS ORDERED: NA CHLORIDE 0.9% 0 ML ONE (07:28)
[2022-01-05] MEDS ORDERED: propofoL 200 MG/20 ML VIAL IV ONE (07:30)
[2022-01-05] MEDS ORDERED: MIDAZOLAM HCL 2 MG/2 ML INJ ONE (07:30)
[2022-01-05] MEDS ORDERED: FENTANYL CITR 100 MCG/2 ML ONE (07:30)
[2022-01-05] MEDS ORDERED: KETOROLAC 30 MG/ML INJ ONE (07:31)
[2022-01-05] MEDS ORDERED: LIDOCAINE 1% MPF 5 ML VIAL ONE (07:31)
[2022-01-05] MEDS ORDERED: ONDANSETRON 4 MG/2 ML VIAL ONE ×2 (07:31→10:43)
[2022-01-05] MEDS ORDERED: VECURONIUM 10 MG/VIAL IV ONE ×2 (07:31→08:46)
[2022-01-05] MEDS ORDERED: dexAMETHasone 10 MG/ML VIAL ONE (07:31)
[2022-01-05] MEDS ORDERED: NS 0.9% VIAL 10 ML ONE ×2 (07:31→08:46)
[2022-01-05] MEDS ORDERED: MORPHINE 10 MG/ML VIAL ONE (09:53)
[2022-01-05] MEDS ORDERED: NEOSTIGMINE 1 MG/ML -10 ML VIAL ONE (10:00)
[2022-01-05] MEDS ORDERED: GLYCOPYRROLATE 0.2 MG/ML SYR ONE (10:01)
[2022-01-05] MEDS ORDERED: IBUPROFEN 200 MG TAB PO PRN (10:14)
[2022-01-05] MEDS ORDERED: MEPERIDINE HCL 25 MG/ML SYR IM PRN (10:14)
[2022-01-05] MEDS ORDERED: PROMETHAZINE INJ 25 MG/ML AMP IV PRN (10:14)
[2022-01-05] MEDS ORDERED: HYDROCODONE/APAP 5/325 MG TAB PO PRN (10:14)
--- NOTE | 2022-01-05 10:18 | P.BOP ---
Preoperative diagnosis: AUB-A/O, Dysmenorrhea Postoperative diagnosis: same and endometriosis Primary procedure: TLH BS endometirosis excision Log Loader: Dora Dillon Estimated blood loss: 50 Specimen: uterus and tubes, rt USL endo Findings: endo rt posterior lateral wall, USL; left pararectal omar master sinus Anesthesia: General Complications: None Transferred to: Recovery Room
[2022-01-05] MEDS ORDERED: PROMETHAZINE INJ 25 MG/ML AMP ONE (10:43)
[2022-01-05 12:08] VITALS: TEMP 98; O2SAT 100
[2022-01-05 13:17] VITALS: BP 118/67
[2022-01-05] MEDS ORDERED: ETODOLAC 400 MG PO SCH (21:00)
--- NOTE | 2022-01-05 22:01 | OP ---
Date of Procedure: 01/05/2022 Surgeon: Tavia Jorgensen MD Solar Photovoltaic Designer: Dora Avina. Preoperative Diagnoses: Menorrhagia, dysmenorrhea (AUB-A/O). Postoperative Diagnoses: Menorrhagia, dysmenorrhea (AUB-A/O) and endometriosis. Procedures Performed: Total laparoscopic hysterectomy, bilateral salpingectomy, endometriosis excisi on. Anesthesia: General endotracheal. Estimated Blood Loss: 50. Urine Output: Was 200. Fluids In: Above 1500. Specimens: Uterus, tubes, and right uterosacral endometriosis. Findings: Uterosacral and right posterolateral wall endo and on the left pararectal space is ___ sinus, but no obvious endo on this spot. Complications: No complications. Drains: No drains. Condition: Stable. Indications: The patient is a 36-year-old female who is G3, P3, done with childbearing, although no contraception placed. Bleeding was evaluated with endometrial sampling and ultrasound. No evidence of atypia or malignancy or large fibroids. She has significant dysmenorrhea that has become very imp airing to her quality of life besides her very heavy bleeding. Has used conservative treatment optio ns including OCs and the IUD in the past but did not work and her IUD had to be removed due to pain. So, discussed about all the options including a repeat IUD, hormonal contraception for regulation of bleeding or an ablation which she probably is too young for this for it to last as a long-term solut ion and a hysterectomy. She was consented for this and brought to the OR. Description Of Procedure: After 3 g of Ancef were given, she was taken back to OR, placed in supine fashion on the operating table. General anesthesia was given. She was placed in a dorsal lithotomy position using Esteban stirrups. Abdomen, vulva, vagina, and perineum were prepped and draped in a kali rile fashion. Arms were tucked by the side. Positioning checked. SCDs started. Time-out done and procedure started. Speculum placed to expose the cervix and large VCare introduced into the uterus and fixed in place. Kwong was placed to drain the bladder and attached for retrograde filling and this area was draped. 1 cm supraumbilical incision was made with a scalpel using the open laparoscopy technique. Fascia wa s incised tagged with 0 Vicryl sutures and peritoneum entered sharply. Retractors were placed and af ter adequate insufflation, upper abdominal surfaces were surveyed and were unremarkable. She was antonio blaine in Trendelenburg and 5 left lower quadrant and 10 suprapubic ports were placed under direct visio n. 0.5% Marcaine was injected 5 cc at each site of the skin and fascia. After survey of the peritoneal cavity, there was no anatomical distortion of the ureters from the pel lupe brim to the ureteric tunnel. Endometriosis noted in the right lateral posterior wall immediately adjacent to the right uterosacral and on the uterosacral. There was a sinus in the left pararectal space which was inspected and there was no endometriosis in the sinus. The rest of the anatomy was unremarkable. Uterus enlarged possibly with adenomyosis. The tubes were taken down with the help of the LigaSure. Utero-ovarian ligament and round ligament w ere taken down on the left side, anterior broad ligament was opened up to raise the bladder flap, anu en all the way to the level of the anterior vaginal wall in the midline. Then, bladder was dissected inferiorly, and posteriorly, peritoneum taken down to the level of the uterosacral carefully not att aching the uterosacral and skeletonizing the broad ligament, exposing the vessels. On the opposite s eli, similar dissection was performed taking down the utero-ovarian round ligament, broad ligament, a nd skeletonizing the vessels, taking down the posterior peritoneum. Here, dissection was carried to excise the endometriosis the ureter at the level of the ureteric tunnel laterally between the ureter and the uterosacral ligament. This excision was done. Some part of the specimen was incl uded with the uterine specimen and some part of it was excised and handed out as a separate specimen. The anterior wall of the vagina was cleaned up. The cup was better exposed and vesicovaginal space w as entered after making an incision with a monopolar hook blade, and once this avascular space was en tered, the bladder was dissected down further. Then, the vessels were taken down to help with the Li gaSure as well as the bipolar. There was bleeding from the left uterine pedicle, which was grasped w ith a [place] grasper and a 5 mm clip was placed x2. There was excellent hemostasis after this. Th e cardinal ligaments were all taken down after the vessels were taken down. Then, care was taken not to detach the uterosacral from the posterior wall, and colpotomy was performed with a monopolar hook blade. Once the specimen was detached and pulled out through the vagina, the vaginal wall with the vaginal cuff was closed with the help of 0 Vicryl sutures at both angles. These were both simple sut ures. Then, a running 2-0 V-Loc starting at the right end and closed in 2 layers getting the fascial layers to close on top of the epithelial closure. There was excellent support of the uterosacrals back reattached to the vaginal cuff for apical suppor t. Good hemostasis. Both ureters were checked. No evidence of electrical, mechanical, or thermal i njury to them. Both ovaries were intact and well vascularized. After thorough irrigation, suction w as performed in the pelvic cavity and the trocars were then removed under direct visualization. Inje cted with 0.5% Marcaine at both sites again, then gas was desufflated. The patient was placed in a s upine fashion, taken out of Trendelenburg. Then, fascia at the umbilicus closed with 0 Vicryl suture s that were tacked on the edges, tied to each other. Simple 0 Vicryl stitch for subcutaneous tissue closure. The fascia at the suprapubic 10 mm site was closed with a simple 0 Vicryl stitch and 3-0 ch romic interrupted sutures to close all the skin incisions. Kwong was removed. The vaginal occluder was removed. Instrument, needle, and sponge counts were correct at the end of the case. The patient tolerated the procedure well. She was recovered from anesthesia and taken to PACU in stable condition. She has a 1-week followup appointment with me and has been rebriefed about the findings and the procedure. ZEE/SAJAN Voice ID: [id number] Report ID: [id number]
== END 2022-01-05 13:10 | disposition home or self-care (01) ==
LOC: OR 06:27
PROVIDERS: ATTEND Obstetrics & Gynecology
PROC: 0UT74ZZ Resection of Bilateral Fallopian Tubes, Percutaneous Endoscopic Approach (ICD-10-PCS; 2022-01-05)
PROC: 0UB44ZZ Excision of Uterine Supporting Structure, Percutaneous Endoscopic Approach (ICD-10-PCS; 2022-01-05)
PROC: 0UT94ZZ Resection of Uterus, Percutaneous Endoscopic Approach (ICD-10-PCS; principal; 2022-01-05 07:30)
DX: N93.9 Abnormal uterine and vaginal bleeding, unspecified (principal); N92.0 Excessive and frequent menstruation with regular cycle; N94.6 Dysmenorrhea, unspecified; Z20.822 Contact with and (suspected) exposure to COVID-19
CPT/HCPCS: 85025; 81001; 36415; 86900; 86850; 81025; 86901; 88305; 88307; 87811; 58571; 58662; J2704; J2710; J2550; J2001; J2250; J3010; J1100; A4216 ×2; J7120 ×3; J2405 ×2; J0690; J7030